=== PATIENT | male | born 1975 | race Caucasian/White ===

== ENCOUNTER 2018-04-09 10:05 | Emergency (ER) | payer OTHER, MEDICAID, SELFPAY ==
[2018-04-09 10:16] VITALS: BP 126/87; PULSE 68; RESP 15; TEMP 36.1; O2SAT 100
[2018-04-09] MEDS: PROPARACAINE 0.5% OPHTH SOL 2 DROPS EYE-LEFT (10:45)
[2018-04-09] MEDS: FLUORESCEIN 1 MG STRIP EYE-LEFT (10:45)
--- NOTE | 2018-04-09 10:48 | ED.EYEPROB ---
HPI - Eye Problem General Chief complaint: Eye Problems Stated complaint: LEFT EYE PAIN Time Seen by Provider: 04/09/18 10:39 Source: patient Mode of arrival: ambulatory Limitations: no limitations History of Present Illness HPI Narrative: This is a 42-year-old male comes emergency department with complaint of left eye pain. He states it started Sunday night early Sunday. It has been continuing to worsen overnight. Patient states that his eye has been red, it feels like there is a lot of pressure behind the eye. He has had some swelling about the eye. Patient denies any fevers, he states his vision has been sort of fuzzy and slightly decreased. Bright light makes it worse. He does have pain with movement. Patient states that he has not had any recent injury, no traumas he has not been engaged in any activities that would likely cause any foreign bodies. Or corneal abrasions. Patient does not wear contacts or glasses. He has had a foreign body on the right side of his eye many years ago but nothing around the left. No prior eye surgeries. He has not had any medical problems, he does not have any prior surgeries. He is not on any oral medications regularly. Patient states that he has not really had any discharge. 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 Related Data Home Medications Medication Instructions Recorded Confirmed ALPRAZOLAM #0 09/16/03 Paroxetine Hydrochloride (Paxil) #0 09/16/03 Allergies Allergy/AdvReac Type Severity Reaction Status Date / Time No Known Drug Allergies Allergy Verified 04/09/18 11:24 Review of Systems Review of Systems All systems reviewed & are unremarkable except as noted in HPI and below Eyes Reports as per HPI, Reports blurry vision, Reports change in vision, Denies diplopia, Denies eye discharge, Reports irritation, Reports eye pain, Denies requires corrective lenses, Denies seeing flashes, Reports photophobia, Denies spots in vision and Reports other (redness, pressure behind eye) Integumentary/Breasts Reports erythema (lids/face, swelling) Exam Narrative Exam Narrative: GEN: well nourished, well appearing male, alert and oriented x 3, patient appears to be in moderate distress. HEENT: Atraumatic, pupils are equal round reactive to light, extraocular movements are intact, patient has moderate swelling of the left upper and lower lids and tissue. Slight erythema. There is no discharge. nares are clear, TMs are clear with no fluid, there is no conjunctival pallor. Throat is clear without any exudates, erythema, tonsillar enlargement or uvular deviation Visual acuity: right [20/20], left [20/200] without correction. IOP: Right 23 mm Hg, Left 22 mm Hg General: no globe trauma Eyelids: Eyelids are slightly swollen on the left upper and lower with erythema no fluctuance, eyelids everted for exam on on the right. Conjunctiva/Sclera: normal inspection on left, the right is injected throughout the sclera and conjunctiva. Corneas: normal inspection, examined with fluroscein on on the left, no uptake, no dendritic lesions, no abrasion or ulceration noted, but the cornea in its entirety does look slightly hazy on left. EOM: intact, no palsy/entrapment Pupils: PERRL, normal accomadation, pupil normal Anterior Chambers: normal inspection, no hypema Posterior: normal fundoscopic on my bilaterally HEART: Regular rate and rhythm without murmur, clicks, rubs. LUNGS:Lungs clear to auscultation, no wheezes, rales, crackles, chest moves symmetrically ABD:bowel sounds normal, soft, non-tender, no guarding, rebound, rigidity, no masses noted, no hepatosplenomegaly MSCL: Non-tender, no muscle atrophy, muscles strength 5/5 upper and lower extremities, full range of motion, normal gait NEURO:CN 2-12 intact, sensation normal Initial Vital Signs Initial Vital Signs: Vital Signs Temperature 97 F L 04/09/18 10:16 Pulse Rate 68 04/09/18 10:16 Respiratory Rate 15 04/09/18 10:16 Blood Pressure 126/87 04/09/18 10:16 Pulse Oximetry 100 04/09/18 10:16 Course Orders Ordered: ED Orders 04/09/18 11:03 CT orbit BI wo con Stat 04/09/18 11:05 Basic Metabolic Panel Stat Complete Blood Count AUTO DIFF Stat Discontinued Medications Fluorescein Sodium (Ful-Anila) 1 mg EYE-LEFT NOW ONE Stop: 04/09/18 11:04 Last Admin: 04/09/18 10:45 Dose: 1 mg Ketorolac Tromethamine (Toradol) 30 mg IV NOW ONE Stop: 04/09/18 11:06 Last Admin: 04/09/18 11:28 Dose: 30 mg Proparacaine HCl (Parcaine 0.5% Ophth Amber) 2 drops EYE-LEFT NOW ONE Stop: 04/09/18 11:04 Last Admin: 04/09/18 10:45 Dose: 2 drops Vital Signs - 8 hr 04/09/18 10:16 04/09/18 12:38 Temperature 97 F L Pulse Rate 68 112 H Respiratory Rate 15 18 Blood Pressure 126/87 Blood Pressure [Left Arm] 132/83 Pulse Oximetry 100 100 MDM - Eye Problem Lab Data Attestation: I reviewed the patient's lab results. Result diagrams: 04/09/18 11:05 04/09/18 11:05 Lab Results 04/09/18 04/09/18 Range/Units 11:05 11:05 WBC 6.4 (4.5-11.0) X10^3/uL RBC 4.97 (4.5-5.9) X10^6/uL Hgb 14.9 (13.5-17.5) g/dL Hct 44.5 (41-53) % MCV 89.4 (80-100) fL MCH 29.9 (26-34) PG MCHC 33.5 (30-36) % RDW 13.9 (11.6-14.8) % Plt Count 192 (150-400) X10^3/uL Neut % (Auto) 62.0 (50-75) % Lymph % (Auto) 26.4 (25-40) % [place] % (Auto) 9.5 (3-14) % Eos % (Auto) 1.5 L (2-4) % Baso % (Auto) 0.6 (0-2) % Neut # (Auto) 4000 (3564-7641) /uL Sodium 139 (137-145) mmol/L Potassium 4.4 (3.4-5.1) mmol/L Chloride 103 (98-107) mmol/L Carbon Dioxide 26 (22-32) mmol/L BUN 18 (9-20) mg/dL Creatinine 0.70 (0.66-1.25) mg/dL Estimated GFR > 60.0 (>60) mL/min BUN/Creatinine Ratio 25.7 H (6-22) Glucose 94 (70-100) mg/dL Calcium 10.2 (8.4-10.2) mg/dL Imaging Data orbit CT: Radiologist's impression: [address] [address] [address] Scan Report Signed Patient: Camacho Monahan MR#: [id number] : 1975 Acct:[id number] Age/Sex: 42 / M Date of Service: 04/09/18 Loc: ED Accession Number: [id number] Procedure: CT orbit BI wo con Ordering Provider: Lubna Montero D.O. PROCEDURE: CT ORBIT BI WO CON INDICATIONS: pain right eye, swelling preseptal, mild, injected TECHNIQUE: Noncontrast 2.5 mm axial images acquired through the orbits, with coronal and sagittal reformats. For radiation dose reduction, the following was used: automated exposure control, adjustment of mA and/or kV according to patient size. COMPARISON: None. FINDINGS: Image quality: Excellent. Orbits: Globes are symmetrical. No metallic foreign bodies. The optic nerves are normal in size. No retrobulbar masses or fat abnormalities. The extra-ocular muscles are normal and symmetrical in appearance. Lacrimal glands are normal in size. Optic chiasm is normal. Intracranial: Visualized portions of the cerebral hemispheres, brainstem, and spinal cord are normal. Bones and sinuses: Visualized calvarium and facial bones appear intact. Visualized sinuses and mastoids are clear. IMPRESSION: Unremarkable examination. No retro-orbital abnormality. Dictated by: Jamal Gregg M.D. on 04/09/2018 at 11:54 Approved by: Jamal Gregg M.D. on 04/09/2018 at 11:57 MDM Narrative Medical decision making narrative: Patient eye exam does show injection Um as well as some haziness over the cornea. Was concern for glaucoma patient does have a normal pressure on initial exam on both eyes slightly elevated at 23 and 22. Patient does have pressure behind the eye and some swelling and erythema so orbital CT was ordered although he has had no other infectious symptoms. 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 There was a question if had managed to take propacaine. Nursing states they had removed from the room. Patient states he does not have it and was told the danger or using it and not seeing Optho. Patient did leave his phone number we discussed with Ophthalmology, they were suspicious for iritis although patient should be expected to get much better with topical proparacaine. Initially discussed putting patient on cyclopentolate and a steroid eyedrops but ultimately decided not to. No herpetic lesions were noted, patient is pressures were normal so angle closure is less likely. Dr. Andino can see the patient tomorrow morning at 9:00 a.m. Or patient if he prefers contrary to see Ophthalmology here in [place]. Patient left without any paperwork and signed out [employer] form. Did recontact patient give him recommendations from Ophthalmology including number and address. Also can followup with Optho in [place]. Discharge Plan Departure Patient Disposition: Left Against Medical Advice Clinical Impression: Acute eye pain Discharge Date/Time: 04/09/18 12:35 Interventions: ED Discharge Assessment Last Done: 04/09/18 13:14 Activity Restrictions/Additional Instructions: Follow-up with Ophthalmology today in or return to the ER for recheck. I am awaiting call back from Ophthalmology. You may take ibuprofen and/or Tylenol as needed for pain. Follow up with Dr. Andino from Ophthalmology. May continue to use Tylenol and/or ibuprofen as needed for pain. The office address is [address] [place] [address] [address] in [place], [place]. If you stop by and 8:45/9 a.m. they will see you 1st thing in the morning. The office is in the basement of a restaurant called [facility]. If you prefer you can follow up with Ophthalmology here in town. Go to the office 1st thing tomorrow for evaluation. Prescriptions: No Action Paroxetine Hydrochloride (Paxil) Qty: 0 RF: 0 ALPRAZOLAM Qty: 0 RF: 0 Stand Alone Forms: Against Medical Advice
--- NOTE | 2018-04-09 11:03 | DI.CT.S_ITS ---
PROCEDURE: CT ORBIT BI WO CON INDICATIONS: pain right eye, swelling preseptal, mild, injected TECHNIQUE: Noncontrast 2.5 mm axial images acquired through the orbits, with coronal and sagittal reformats. For radiation dose reduction, the following was used: automated exposure control, adjustment of mA and/or kV according to patient size. COMPARISON: None. FINDINGS: Image quality: Excellent. Orbits: Globes are symmetrical. No metallic foreign bodies. The optic nerves are normal in size. No retrobulbar masses or fat abnormalities. The extra-ocular muscles are normal and symmetrical in appearance. Lacrimal glands are normal in size. Optic chiasm is normal. Intracranial: Visualized portions of the cerebral hemispheres, brainstem, and spinal cord are normal. Bones and sinuses: Visualized calvarium and facial bones appear intact. Visualized sinuses and mastoids are clear. IMPRESSION: Unremarkable examination. No retro-orbital abnormality. Dictated by: Jamal Gregg M.D. on 04/09/2018 at 11:54 Approved by: Jamal Gregg M.D. on 04/09/2018 at 11:57
--- NOTE | 2018-04-09 11:09 | ED_ITS ---
HPI - Eye Problem General Chief complaint: Eye Problems Stated complaint: LEFT EYE PAIN Time Seen by Provider: 04/09/18 10:39 Source: patient Mode of arrival: ambulatory Limitations: no limitations History of Present Illness HPI Narrative: This is a 42-year-old male comes emergency department with complaint of left eye pain. He states it started Sunday night early Sunday. It has been continuing to worsen overnight. Patient states that his eye has been red, it feels like there is a lot of pressure behind the eye. He has had some swelling about the eye. Patient denies any fevers, he states his vision has been sort of fuzzy and slightly decreased. Bright light makes it worse. He does have pain with movement. Patient states that he has not had any recent injury, no traumas he has not been engaged in any activities that would likely cause any foreign bodies. Or corneal abrasions. Patient does not wear contacts or glasses. He has had a foreign body on the right side of his eye many years ago but nothing around the left. No prior eye surgeries. He has not had any medical problems, he does not have any prior surgeries. He is not on any oral medications regularly. Patient states that he has not really had any discharge. 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 Related Data Home Medications Medication Instructions Recorded Confirmed ALPRAZOLAM #0 09/16/03 Paroxetine Hydrochloride (Paxil) #0 09/16/03 Allergies Allergy/AdvReac Type Severity Reaction Status Date / Time No Known Drug Allergies Allergy Verified 04/09/18 11:24 Review of Systems Review of Systems All systems reviewed & are unremarkable except as noted in HPI and below Eyes Reports as per HPI, Reports blurry vision, Reports change in vision, Denies diplopia, Denies eye discharge, Reports irritation, Reports eye pain, Denies requires corrective lenses, Denies seeing flashes, Reports photophobia, Denies spots in vision and Reports other (redness, pressure behind eye) Integumentary/Breasts Reports erythema (lids/face, swelling) Exam Narrative Exam Narrative: GEN: well nourished, well appearing male, alert and oriented x 3 , patient appears to be in moderate distress. HEENT: Atraumatic, pupils are equal round reactive to light, extraocular movements are intact, patient has moderate swelling of the left upper and lower lids and tissue. Slight erythema. There is no discharge. nares are clear, TMs are clear with no fluid, there is no conjunctival pallor. Throat is clear without any exudates, erythema, tonsillar enlargement or uvular deviation Visual acuity: right [20/20], left [20/200] without correction. IOP: Right 23 mm Hg, Left 22 mm Hg General: no globe trauma Eyelids: Eyelids are slightly swollen on the left upper and lower with erythema no fluctuance, eyelids everted for exam on on the right. Conjunctiva/Sclera: normal inspection on left, the right is injected throughout the sclera and conjunctiva. Corneas: normal inspection, examined with fluroscein on on the left, no uptake, no dendritic lesions, no abrasion or ulceration noted, but the cornea in its entirety does look slightly hazy on left. EOM: intact, no palsy/entrapment Pupils: PERRL, normal accomadation, pupil normal Anterior Chambers: normal inspection, no hypema Posterior: normal fundoscopic on my bilaterally HEART: Regular rate and rhythm without murmur, clicks, rubs. LUNGS:Lungs clear to auscultation, no wheezes, rales, crackles, chest moves symmetrically ABD:bowel sounds normal, soft, non-tender, no guarding, rebound, rigidity, no masses noted, no hepatosplenomegaly MSCL: Non-tender, no muscle atrophy, muscles strength 5/5 upper and lower extremities, full range of motion, normal gait NEURO:CN 2-12 intact, sensation normal Initial Vital Signs Initial Vital Signs: Vital Signs Temperature 97 F L 04/09/18 10:16 Pulse Rate 68 04/09/18 10:16 Respiratory Rate 15 04/09/18 10:16 Blood Pressure 126/87 04/09/18 10:16 Pulse Oximetry 100 04/09/18 10:16 Course Orders Ordered: ED Orders 04/09/18 11:03 CT orbit BI wo con Stat 04/09/18 11:05 Basic Metabolic Panel Stat Complete Blood Count AUTO DIFF Stat Discontinued Medications Fluorescein Sodium (Ful-Anila) 1 mg EYE-LEFT NOW ONE Stop: 04/09/18 11:04 Last Admin: 04/09/18 10:45 Dose: 1 mg Ketorolac Tromethamine (Toradol) 30 mg IV NOW ONE Stop: 04/09/18 11:06 Last Admin: 04/09/18 11:28 Dose: 30 mg Proparacaine HCl (Parcaine 0.5% Ophth Amber) 2 drops EYE-LEFT NOW ONE Stop: 04/09/18 11:04 Last Admin: 04/09/18 10:45 Dose: 2 drops Vital Signs - 8 hr 04/09/18 10:16 04/09/18 12:38 Temperature 97 F L Pulse Rate 68 112 H Respiratory Rate 15 18 Blood Pressure 126/87 Blood Pressure [Left Arm] 132/83 Pulse Oximetry 100 100 MDM - Eye Problem Lab Data Attestation: I reviewed the patient's lab results. Result diagrams: 04/09/18 11:05 04/09/18 11:05 Lab Results 04/09/18 04/09/18 Range/Units 11:05 11:05 WBC 6.4 (4.5-11.0) X10^3/uL RBC 4.97 (4.5-5.9) X10^6/uL Hgb 14.9 (13.5-17.5) g/dL Hct 44.5 (41-53) % MCV 89.4 (80-100) fL MCH 29.9 (26-34) PG MCHC 33.5 (30-36) % RDW 13.9 (11.6-14.8) % Plt Count 192 (150-400) X10^3/uL Neut % (Auto) 62.0 (50-75) % Lymph % (Auto) 26.4 (25-40) % [place] % (Auto) 9.5 (3-14) % Eos % (Auto) 1.5 L (2-4) % Baso % (Auto) 0.6 (0-2) % Neut # (Auto) 4000 (2271-3884) /uL Sodium 139 (137-145) mmol/L Potassium 4.4 (3.4-5.1) mmol/L Chloride 103 (98-107) mmol/L Carbon Dioxide 26 (22-32) mmol/L BUN 18 (9-20) mg/dL Creatinine 0.70 (0.66-1.25) mg/dL Estimated GFR > 60.0 (>60) mL/min BUN/Creatinine Ratio 25.7 H (6-22) Glucose 94 (70-100) mg/dL Calcium 10.2 (8.4-10.2) mg/dL Imaging Data orbit CT: Radiologist's impression: [address] [address] [address] Scan Report Signed Patient: Camacho Monahan MR#: [id number] : 1975 Acct:[id number] Age/Sex: 42 / M Date of Service: 04/09/18 Loc: ED Accession Number: [id number] Procedure: CT orbit BI wo con Ordering Provider: Lubna Montero D.O. PROCEDURE: CT ORBIT BI WO CON INDICATIONS: pain right eye, swelling preseptal, mild, injected TECHNIQUE: Noncontrast 2.5 mm axial images acquired through the orbits, with coronal and sagittal reformats. For radiation dose reduction, the following was used: automated exposure control, adjustment of mA and/or kV according to patient size. COMPARISON: None. FINDINGS: Image quality: Excellent. Orbits: Globes are symmetrical. No metallic foreign bodies. The optic nerves are normal in size. No retrobulbar masses or fat abnormalities. The extra-ocular muscles are normal and symmetrical in appearance. Lacrimal glands are normal in size. Optic chiasm is normal. Intracranial: Visualized portions of the cerebral hemispheres, brainstem, and spinal cord are normal. Bones and sinuses: Visualized calvarium and facial bones appear intact. Visualized sinuses and mastoids are clear. IMPRESSION: Unremarkable examination. No retro-orbital abnormality. Dictated by: Jamal Gregg M.D. on 04/09/2018 at 11:54 Approved by: Jamal Gregg M.D. on 04/09/2018 at 11:57 MDM Narrative Medical decision making narrative: Patient eye exam does show injection Um as well as some haziness over the cornea. Was concern for glaucoma patient does have a normal pressure on initial exam on both eyes slightly elevated at 23 and 22. Patient does have pressure behind the eye and some swelling and erythema so orbital CT was ordered although he has had no other infectious symptoms. 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 There was a question if had managed to take propacaine. Nursing states they had removed from the room. Patient states he does not have it and was told the danger or using it and not seeing Optho. Patient did leave his phone number we discussed with Ophthalmology, they were suspicious for iritis although patient should be expected to get much better with topical proparacaine. Initially discussed putting patient on cyclopentolate and a steroid eyedrops but ultimately decided not to. No herpetic lesions were noted, patient is pressures were normal so angle closure is less likely. Dr. Andino can see the patient tomorrow morning at 9:00 a.m. Or patient if he prefers contrary to see Ophthalmology here in [place]. Patient left without any paperwork and signed out [employer] form. Did recontact patient give him recommendations from Ophthalmology including number and address. Also can followup with Optho in [place]. Discharge Plan Departure Patient Disposition: Left Against Medical Advice Clinical Impression: Acute eye pain Discharge Date/Time: 04/09/18 12:35 Interventions: ED Discharge Assessment Last Done: 04/09/18 13:14 Activity Restrictions/Additional Instructions: Follow-up with Ophthalmology today in or return to the ER for recheck. I am awaiting call back from Ophthalmology. You may take ibuprofen and/or Tylenol as needed for pain. Follow up with Dr. Andino from Ophthalmology. May continue to use Tylenol and/or ibuprofen as needed for pain. The office address is [address] [place] [address] [address] in [place], [place]. If you stop by and 8:45/9 a.m. they will see you 1st thing in the morning. The office is in the basement of a restaurant called [facility]. If you prefer you can follow up with Ophthalmology here in town. Go to the office 1st thing tomorrow for evaluation. Prescriptions: No Action Paroxetine Hydrochloride (Paxil) Qty: 0 RF: 0 ALPRAZOLAM Qty: 0 RF: 0 Stand Alone Forms: Against Medical Advice
[2018-04-09 11:18] LABS: Add Manual Diff / Slide Review NO; Basophils Percent Auto 0.6 % (0-2); Eosinophils Percent Auto 1.5 % (2-4); Hematocrit 44.5 % (41-53); Hemoglobin 14.9 g/dL (13.5-17.5); Lymphocytes Percent Auto 26.4 % (25-40); Mean Corpuscular HGB Conc 33.5 % (30-36); Mean Corpuscular Hemoglobin 29.9 PG (26-34); Mean Corpuscular Volume 89.4 fL (80-100); Monocytes Percent Auto 9.5 % (3-14); Neutrophils Absolute Auto 4000 /uL (1500-7000); Platelet Count 192 X10^3/uL (150-400); Red Blood Cell Count 4.97 X10^6/uL (4.5-5.9); Red Cell Distribution Width 13.9 % (11.6-14.8); White Blood Cell Count 6.4 X10^3/uL (4.5-11.0)
[2018-04-09] MEDS: KETOROLAC 60 MG/2 ML VIAL 30 MG IV (11:28)
[2018-04-09 11:29] LABS: BUN Creatinine Ratio 25.7 (6-22); Blood Urea Nitrogen 18 mg/dL (9-20); Calcium 10.2 mg/dL (8.4-10.2); Carbon Dioxide 26 mmol/L (22-32); Chloride 103 mmol/L (98-107); Estimated Glomerular Filt Rate > 60.0 mL/min (>60); Glucose 94 mg/dL (70-100); HEMOLYSIS < 15 (0-50); Potassium 4.4 mmol/L (3.4-5.1); Sodium 139 mmol/L (137-145)
[2018-04-09 12:38] VITALS: BP 132/83; PULSE 112; RESP 18; O2SAT 100
--- NOTE | 2018-04-09 13:08 | PC.NURSE ---
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 I explained to him that if he leaves then he will need to be readmitted to the ER again. He states there is no one else to pick her up since family is out of town. He will pick her up and come directly back, states it will take twenty minutes. DO Montero at bedside discussing this with patient, she states she wants to call ophthalmology and would prefer he stay until then. He reports he must leave. DO Montero got his phone number and was finishing up his paperwork including AMA when he stated he had to go right then but will come back. Patient reports pain is much improved form the iv ibuprofen stuff I think. No paperwork signed, verbal discharge and AMA performed by DO Montero.
--- NOTE | 2018-04-09 13:50 | PC.NURSE ---
I called patient per request from Dr. Montero. Gave him information from Ophthalmic Medical Technologist to go to Dr. Andino's office at [address] [place] [address] between 845 and 9am tomorrow. patient is agreeable with this plan and will call if for some reason he cannot make it there tomorrow.
== END 2018-04-09 12:35 | disposition left against medical advice (07) ==
PROVIDERS: Emergency Provider Emergency Medicine
DX: H57.12 Ocular pain, left eye (principal)
CPT/HCPCS: 36591; 70480; 80048; 85025; 96374; 99283; 99284; J1885

== ENCOUNTER 2018-04-13 09:11 | Emergency (ER) | payer OTHER, MEDICAID, SELFPAY ==
[2018-04-13 09:15] VITALS: BP 122/92; PULSE 75; RESP 20; TEMP 36.5; O2SAT 100
[2018-04-13] MEDS: PROPARACAINE 0.5% OPHTH SOL 1 DROPS EYE-LEFT (09:36)
--- NOTE | 2018-04-13 10:03 | ED.EYEPROB ---
HPI - Eye Problem General Chief complaint: Eye Problems Stated complaint: states severe pain left eye, loss of vision Time Seen by Provider: 04/13/18 10:02 Source: patient and old records reviewed Mode of arrival: ambulatory Limitations: no limitations History of Present Illness HPI Narrative: This is a 42-year-old male who comes in with complaint of left eye pain and decreased vision. He was seen by myself on the 09 of April. He left [facility] prior to talking to Ophthalmology after he had been evaluated. Discussed with patient on the phone he needs to follow up. We set up a follow-up appointment the next morning and [facility] but also relate that he could see Ophthalmology here although we had not set up an exact appointment in and [place]. Patient apparently misunderstood did not go to the appointment infrequent and did not understand that he could come to here and in a [place] and did not return to the ER. Patient's eye has been increasingly painful. He states that he continues to feel pressure is continues to be quite injected. He is not having lot of drainage but he is having tearing. He states his vision has been decreasing. He has felt sort of chilled but fevers, he has not had any other rashes or facial infections. He denies any other new injuries. He denies any introcular drops. There was concern that he may have taken appropriate came bottle which he denied at the time and denies as well today. Patient does not normally wear glasses, does not contacts. He has mental health issues for bipolar schizophrenia but denies any other medical issues. He states before he was able to see but but now he can't blurred shapes but nothing better. Related Data Home Medications Medication Instructions Recorded Confirmed ALPRAZOLAM #0 09/16/03 Paroxetine Hydrochloride (Paxil) #0 09/16/03 Allergies Allergy/AdvReac Type Severity Reaction Status Date / Time No Known Drug Allergies Allergy Verified 04/09/18 11:24 Review of Systems Review of Systems All systems reviewed & are unremarkable except as noted in HPI and below Constitutional Reports chills, Denies fever(s) and Reports headache(s) Eyes Reports blurry vision, Reports change in vision, Denies diplopia, Reports eye discharge (teary, no purulent), Reports irritation, Reports eye pain, Denies requires corrective lenses, Reports photophobia and Denies spots in vision ENT Ears, Nose, Mouth, and Throat: Reports headache(s) and Denies nasal congestion Gastrointestinal Gastrointestinal: Reports nausea and Denies vomiting Integumentary/Breasts Reports rash (eyelid) Neurologic Reports headache(s) [facility] Social History Smoking Status: Never smoker Exam Narrative Exam Narrative: GEN: well nourished, well appearing male, alert and oriented x 3, patient appears to be in moderate distress. HEENT: Atraumatic, pupils are equal round reactive to light, extraocular movements are intact, nares are clear, TMs are clear with no fluid, there is no conjunctival pallor. Throat is clear without any exudates, erythema, tonsillar enlargement or uvular deviation Visual acuity: right [20/20], left unable to obtain. can differentiate fingers. IOP: Right 23 mm Hg, Left 22 mm Hg General: no globe trauma Eyelids: Patient's right eyelid is normal, left eyelid is slightly injected in the upper as well as lower with some swelling. There is no real erythema left versus right except just along the lids.. Conjunctiva/Sclera: normal inspection on the right, on the left patient is very injected in the sclera and conjunctiva. Corneas: normal inspection, examined with fluroscein on left. Patient has haziness to the cornea as well as uptake around the edge of the cornea and sort of spreading in words. Patient also has punctate injection over the sclera sort of generalized. This is new from his last exam which had no uptake. No foreign body, no linear abrasions are noted. EOM: intact, no palsy/entrapment Pupils: PERRL, normal accomadation, pupil normal Anterior Chambers: normal inspection, no hypema Posterior: normal fundoscopic on bilaterally but difficult to obtain on left second to photophobia and pain. HEART: Regular rate and rhythm without murmur, clicks, rubs. No carotid bruits, pulses are equal in upper and lower extremities LUNGS:Lungs clear to auscultation, no wheezes, rales, crackles, chest moves symmetrically ABD:bowel sounds normal, soft, non-tender, no guarding, rebound, rigidity, no masses noted, no hepatosplenomegaly MSCL: Non-tender, no muscle atrophy, muscles strength 5/5 upper and lower extremities, full range of motion, normal gait NEURO:CN 2-12 intact, sensation normal Initial Vital Signs Initial Vital Signs: Vital Signs Temperature 97.7 F 04/13/18 09:15 Pulse Rate 75 04/13/18 09:15 Respiratory Rate 20 04/13/18 09:15 Blood Pressure 122/92 H 04/13/18 09:15 Pulse Oximetry 100 04/13/18 09:15 Course Orders Ordered: Discontinued Medications Hydrocodone Bitart/Acetaminophen (Bradford 5/325) 2 tab PO NOW ONE Stop: 04/13/18 10:25 Last Admin: 04/13/18 10:35 Dose: 2 tab Ibuprofen (Advil) 800 mg PO NOW ONE Stop: 04/13/18 10:04 Last Admin: 04/13/18 10:07 Dose: 800 mg Ofloxacin (Ocuflox 0.3% Ophth) 1 drops EYE-LEFT NOW ONE Stop: 04/13/18 10:25 Last Admin: 04/13/18 10:45 Dose: 2 drop Proparacaine HCl (Parcaine 0.5% Ophth Amber) 1 drops EYE-LEFT NOW ONE Stop: 04/13/18 09:34 Last Admin: 04/13/18 09:36 Dose: 2 drop Vital Signs - 8 hr 04/13/18 09:15 04/13/18 11:03 Temperature 97.7 F Pulse Rate 75 86 Respiratory Rate 20 15 Blood Pressure 122/92 H Blood Pressure [Left Arm] 147/92 H Pulse Oximetry 100 99 MDM - Eye Problem MDM Narrative Medical decision making narrative: Discussed with patient I am quite concerned and I want him to see Ophthalmology today if possible. There is no local ophthalmology available. We discussed talking to Ophthalmology through [facility]. Patient does now have some uptake on fluorescein which she did not have on his last visit on the 09 of April. Started on some antibiotic eyedrops. He was given 2 Bradford here for pain as well as ibuprofen. Patient has not had any similar issues in the past. We discussed he had to leave [facility] last time because he had a young child that he had to warp picker and did not have any additional help. He was aware of the appointment made for him for Ophthalmology but stated it was too difficult to get to. He states his symptoms have sort of been improved occasionally with ibuprofen but have been slowly worsening in general. He came in today because he did have any appointments or other things that he had to get to and appears quite uncomfortable today. Patient and I discussed that delay in treatment or further delay in treatment unlikely cause loss of vision. He is well aware of this. Patient and I discussed that he really needs to see Ophthalmology and get started on appropriate treatment. Last discussion with Ophthalmology was that patient might have a high right us versus optic neuritis versus other cause. Spoke with Dr. Guallpa with Ophthalmology. She asked that the patient come to [facility] Emergency Department for evaluation. Plan to send patient by private auto. Discussed that we give him the floor quinolone eye drop. She agrees that he does need evaluation by Ophthalmology. Patient has been given directions, he has transportation personally 2 [facility] ER we did discuss if he needed that he could have BLS transport but does not needed at this time. Discharge Plan Departure Patient Disposition: [facility] Clinical Impression: Acute eye pain, Decreased vision Activity Restrictions/Additional Instructions: Go directly to the ER at [facility] to follow up with Ophthalmology. Let them know your case was dicussed with Dr. Guallpa and they are expecting you to come to the ER today for evaluation. Continue antibiotic eyedrops 1-2 drops every 4 hr while awake. At least 4 times daily. Continue ibuprofen 600 mg every 6 hr as needed for pain. You may also use Tylenol 1000 mg every 8 hr as needed for pain. Prescriptions: No Action Paroxetine Hydrochloride (Paxil) Qty: 0 RF: 0 ALPRAZOLAM Qty: 0 RF: 0
[2018-04-13] MEDS: IBUPROFEN 400 MG TABLET 800 MG PO (10:07)
--- NOTE | 2018-04-13 10:33 | ED_ITS ---
HPI - Eye Problem General Chief complaint: Eye Problems Stated complaint: states severe pain left eye, loss of vision Time Seen by Provider: 04/13/18 10:02 Source: patient and old records reviewed Mode of arrival: ambulatory Limitations: no limitations History of Present Illness HPI Narrative: This is a 42-year-old male who comes in with complaint of left eye pain and decreased vision. He was seen by myself on the 09 of April. [place] [facility] [place] to [place]mology after he had been evaluated. Discussed with patient on the phone he needs to follow up. We set up a follow-up appointment the next morning and [facility] but also relate that he could see Ophthalmology here although we had not set up an exact appointment in and [place]. Patient apparently misunderstood did not go to the appointment infrequent and did not understand that he could come to here and in a [place] and did not return to the ER. Patient's eye has been increasingly painful. He states that he continues to feel pressure is continues to be quite injected. He is not having lot of drainage but he is having tearing. He states his vision has been decreasing. He has felt sort of chilled but fevers, he has not had any other rashes or facial infections. He denies any other new injuries. He denies any introcular drops. There was concern that he may have taken appropriate came bottle which he denied at the time and denies as well today. Patient does not normally wear glasses, does not contacts. He has mental health issues for bipolar schizophrenia but denies any other medical issues. He states before he was able to see but but now he can't blurred shapes but nothing better. Related Data Home Medications Medication Instructions Recorded Confirmed ALPRAZOLAM #0 09/16/03 Paroxetine Hydrochloride (Paxil) #0 09/16/03 Allergies Allergy/AdvReac Type Severity Reaction Status Date / Time No Known Drug Allergies Allergy Verified 04/09/18 11:24 Review of Systems Review of Systems All systems reviewed & are unremarkable except as noted in HPI and below Constitutional Reports chills, Denies fever(s) and Reports headache(s) Eyes Reports blurry vision, Reports change in vision, Denies diplopia, Reports eye discharge (teary, no purulent), Reports irritation, Reports eye pain, Denies requires corrective lenses, Reports photophobia and Denies spots in vision ENT Ears, Nose, Mouth, and Throat: Reports headache(s) and Denies nasal congestion Gastrointestinal Gastrointestinal: Reports nausea and Denies vomiting Integumentary/Breasts Reports rash (eyelid) Neurologic Reports headache(s) [facility] Social History Smoking Status: Never smoker Exam Narrative Exam Narrative: GEN: well nourished, well appearing male, alert and oriented x 3 , patient appears to be in moderate distress. HEENT: Atraumatic, pupils are equal round reactive to light, extraocular movements are intact, nares are clear, TMs are clear with no fluid, there is no conjunctival pallor. Throat is clear without any exudates, erythema, tonsillar enlargement or uvular deviation Visual acuity: right [20/20], left unable to obtain. can differentiate fingers. IOP: Right 23 mm Hg, Left 22 mm Hg General: no globe trauma Eyelids: Patient's right eyelid is normal, left eyelid is slightly injected in the upper as well as lower with some swelling. There is no real erythema left versus right except just along the lids.. Conjunctiva/Sclera: normal inspection on the right, on the left patient is very injected in the sclera and conjunctiva. Corneas: normal inspection, examined with fluroscein on left. Patient has haziness to the cornea as well as uptake around the edge of the cornea and sort of spreading in words. Patient also has punctate injection over the sclera sort of generalized. This is new from his last exam which had no uptake. No foreign body, no linear abrasions are noted. EOM: intact, no palsy/entrapment Pupils: PERRL, normal accomadation, pupil normal Anterior Chambers: normal inspection, no hypema Posterior: normal fundoscopic on bilaterally but difficult to obtain on left second to photophobia and pain. HEART: Regular rate and rhythm without murmur, clicks, rubs. No carotid bruits , pulses are equal in upper and lower extremities LUNGS:Lungs clear to auscultation, no wheezes, rales, crackles, chest moves symmetrically ABD:bowel sounds normal, soft, non-tender, no guarding, rebound, rigidity, no masses noted, no hepatosplenomegaly MSCL: Non-tender, no muscle atrophy, muscles strength 5/5 upper and lower extremities, full range of motion, normal gait NEURO:CN 2-12 intact, sensation normal Initial Vital Signs Initial Vital Signs: Vital Signs Temperature 97.7 F 04/13/18 09:15 Pulse Rate 75 04/13/18 09:15 Respiratory Rate 20 04/13/18 09:15 Blood Pressure 122/92 H 04/13/18 09:15 Pulse Oximetry 100 04/13/18 09:15 Course Orders Ordered: Discontinued Medications Hydrocodone Bitart/Acetaminophen (Burns 5/325) 2 tab PO NOW ONE Stop: 04/13/18 10:25 Last Admin: 04/13/18 10:35 Dose: 2 tab Ibuprofen (Advil) 800 mg PO NOW ONE Stop: 04/13/18 10:04 Last Admin: 04/13/18 10:07 Dose: 800 mg Ofloxacin (Ocuflox 0.3% Ophth) 1 drops EYE-LEFT NOW ONE Stop: 04/13/18 10:25 Last Admin: 04/13/18 10:45 Dose: 2 drop Proparacaine HCl (Parcaine 0.5% Ophth Amber) 1 drops EYE-LEFT NOW ONE Stop: 04/13/18 09:34 Last Admin: 04/13/18 09:36 Dose: 2 drop Vital Signs - 8 hr 04/13/18 09:15 04/13/18 11:03 Temperature 97.7 F Pulse Rate 75 86 Respiratory Rate 20 15 Blood Pressure 122/92 H Blood Pressure [Left Arm] 147/92 H Pulse Oximetry 100 99 MDM - Eye Problem MDM Narrative Medical decision making narrative: Discussed with patient I am quite concerned and I want him to see Ophthalmology today if possible. There is no local ophthalmology available. We discussed talking to Ophthalmology through [facility]. Patient does now have some uptake on fluorescein which she did not have on his last visit on the 09 of April. Started on some antibiotic eyedrops. He was given 2 Burns here for pain as well as ibuprofen. Patient has not had any similar issues in the past. We discussed he had to leave [facility] last time because he had a young child that he had to pepper picker and did not have any additional help. He was aware of the appointment made for him for Ophthalmology but stated it was too difficult to get to. He states his symptoms have sort of been improved occasionally with ibuprofen but have been slowly worsening in general. He came in today because he did have any appointments or other things that he had to get to and appears quite uncomfortable today. Patient and I discussed that delay in treatment or further delay in treatment unlikely cause loss of vision. He is well aware of this. Patient and I discussed that he really needs to see Ophthalmology and get started on appropriate treatment. Last discussion with Ophthalmology was that patient might have a high right us versus optic neuritis versus other cause. Spoke with Dr. Guallpa with Ophthalmology. She asked that the patient come to [facility] Emergency Department for evaluation. Plan to send patient by private auto. Discussed that we give him the floor quinolone eye drop. She agrees that he does need evaluation by Ophthalmology. Patient has been given directions, he has transportation personally 2 [facility] ER we did discuss if he needed that he could have BLS transport but does not needed at this time. Discharge Plan Departure Patient Disposition: [facility] Clinical Impression: Acute eye pain, Decreased vision Activity Restrictions/Additional Instructions: Go directly to the ER at [facility] to follow up with Ophthalmology. Let them know your case was dicussed with Dr. Guallpa and they are expecting you to come to the ER today for evaluation. Continue antibiotic eyedrops 1-2 drops every 4 hr while awake. At least 4 times daily. Continue ibuprofen 600 mg every 6 hr as needed for pain. You may also use Tylenol 1000 mg every 8 hr as needed for pain. Prescriptions: No Action Paroxetine Hydrochloride (Paxil) Qty: 0 RF: 0 ALPRAZOLAM Qty: 0 RF: 0
[2018-04-13] MEDS: HYDROCODONE/ACET 5/325 TABLET 2 TAB PO (10:35)
[2018-04-13] MEDS: OFLOXACIN 0.3% OPHTH 5 ML 1 DROPS EYE-LEFT (10:45)
[2018-04-13 11:03] VITALS: BP 147/92; PULSE 86; RESP 15; O2SAT 99
== END 2018-04-13 12:00 | disposition short-term general hospital (02) ==
PROVIDERS: Emergency Provider Emergency Medicine
DX: H57.12 Ocular pain, left eye (principal); H54.7 Unspecified visual loss
CPT/HCPCS: 99283

== ENCOUNTER 2021-06-14 09:38 | Emergency (ER) | payer OTHER, MEDICAID, SELFPAY ==
[2021-06-14] VITALS (12 sets, daily range): BP systolic 115–167; BP diastolic 66–103; PULSE 48–64; RESP 13–42; TEMP 36.3; O2SAT 95–98; BMI 32.1
--- NOTE | 2021-06-14 09:48 | DI.RAD.S_ITS ---
PROCEDURE: XR CHEST 1V INDICATIONS: chest pain TECHNIQUE: One view of the chest was acquired. COMPARISON: None. FINDINGS: Surgical changes and devices: None. Lungs and pleura: Lungs are clear. No pleural effusions or pneumothorax. Mediastinum: Mediastinal contours appear normal. Heart size is enlarged. No vascular congestion present.. Bones and chest wall: No suspicious bony lesions. Overlying soft tissues appear unremarkable. IMPRESSION: Cardiomegaly without vascular congestion Approved by: Prince Arenas M.D. on 06/14/2021 at 10:00
[2021-06-14 10:05] LABS: Add Manual Diff / Slide Review NO; Basophils Absolute Auto 0 /uL (0-100); Basophils Percent Auto 0.9 % (0-2); Eosinophils Absolute Auto 100 /uL (0-450); Eosinophils Percent Auto 1.8 % (2-4); Hematocrit 41.7 % (41-53); Hemoglobin 13.9 g/dL (13.5-17.5); Lymphocytes Absolute Auto 2000 /uL (1100-4500); Mean Corpuscular HGB Conc 33.3 % (30-36); Mean Corpuscular Hemoglobin 29.1 PG (26-34); Mean Corpuscular Volume 87.4 fL (80-100); Monocytes Absolute Auto 500 /uL (0-900); Monocytes Percent Auto 9.6 % (3-14); Neutrophils Absolute Auto 2300 /uL (1500-7000); Neutrophils Percent Auto 46.7 % (50-75); Platelet Count 218 X10^3/uL (150-400); Red Blood Cell Count 4.76 X10^6/uL (4.5-5.9); Red Cell Distribution Width 14.2 % (11.6-14.8); White Blood Cell Count 4.9 X10^3/uL (4.5-11.0)
[2021-06-14 10:07] LABS: INR 1.1 (0.9-1.3); Prothrombin Time 11.7 SECONDS (10.1-12.7)
[2021-06-14 10:10] LABS: PTT Partial Thromboplastin Tim 33 SECONDS (26.4-36.2)
[2021-06-14 10:12] LABS: Alanine Aminotransferase 18 IU/L (<50); Albumin 4.6 g/dL (3.5-5.0); Albumin Globulin Ratio 1.2 (1.0-2.8); Alkaline Phosphatase 67 U/L (38-126); Aspartate Aminotransferase 23 IU/L (17-59); BUN Creatinine Ratio 16.5 (6-22); Bilirubin Total 0.6 mg/dL (0.2-1.3); Blood Urea Nitrogen 13 mg/dL (9-20); Calcium 10.3 mg/dL (8.4-10.2); Carbon Dioxide 27 mmol/L (22-32); Chloride 105 mmol/L (98-107); Creatine Kinase 84 U/L (55-170); Estimated Glomerular Filt Rate > 60.0 mL/min (>60); Globulin 3.7 g/dL (1.7-4.1); Glucose 102 mg/dL (70-100); HEMOLYSIS < 15 (0-50); Lipase 109 U/L (23-300); Potassium 4.1 mmol/L (3.4-5.1); Sodium 140 mmol/L (137-145); Total Protein 8.3 g/dL (6.3-8.2)
[2021-06-14 10:23] LABS: Troponin I < 0.012 ng/mL (0.01-0.034)
--- NOTE | 2021-06-14 10:35 | ED_ITS ---
HPI - Chest Pain General Chief Complaint: Chest Pain Stated Complaint: Heart palpatations Time Seen by Provider: 06/14/21 10:07 Source: patient Mode of arrival: Ambulatory Limitations: no limitations History of Present Illness HPI narrative: Patient is a 45-year-old male who has a history of bipolar schizophrenia c ontrolled on marijuana and tinctures, presenting today with palpitations. He says over last 5 days he has had some palpitations. He notices it mostly at night when he laid down in sometimes in the morning. He denies any dizziness or lightheadedness. He has no shortness of breath. He does have some pain in the left side which hurts whenever he touches it. He has been taking ibuprofen which does seem to help. He has no known coronary artery disease. He has been able to walk and move around without any difficulty the last few days. He denies any dizziness or lightheadedness. He has not felt any palpitations while in the emergency department. 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 He denies any significant weight loss or weight gain. Related Data Previous Rx's Medication Instructions Recorded permethrin 5 % topical cream 1 applic TOPICAL Q14D #60 g 03/25/21 Allergies Allergy/AdvReac Type Severity Reaction Status Date / Time No Known Drug Allergies Allergy Verified 06/14/21 09:48 Review of Systems Review of Systems Narrative: GENERAL: Denies chills, fatigue, malaise, fever, sweats, travel HEENT: Denies sinus pain, ear pain, sore throat, difficulty swallowing, neck pain RESPIRATORY: Denies dyspnea, cough, wheezing, hemoptysis, sputum. CARDIOVASCULAR: See HPI GASTROINTESTINAL: Denies nausea, vomiting, abdominal pain, diarrhea, constipat ion, melena. : Denies dysuria, frequency, incontinence, hematuria, urinary retention, flank pain. MUSCULOSKELETAL: Denies weakness, joint pain, or bony pain SKIN: No rash, no erythema, no pruritus NEUROLOGIC: Denies weakness, dizziness, headache, numbness, change in speech, confusion PSYCHIATRIC: No concerning psychosocial issues. 12 point review of systems is negative except for those stated above and HPI Patient History Medical History Bipolar 1 disorder Scabies Schizophrenia Skin rash Social History Smoking Status: Never smoker Smoking Status: Never smoker alcohol intake frequency: holidays/special occasions only Substance Use Type: marijuana Exam Initial Vital Signs Initial Vital Signs: Vital Signs Temperature 97.4 F L 06/14/21 09:42 Pulse Rate 63 06/14/21 09:42 Respiratory Rate 17 06/14/21 09:42 Blood Pressure 167/103 H 06/14/21 09:42 Pulse Oximetry 98 06/14/21 09:42 GENERAL: Alert 45-year-old and in no acute distress. HEENT: Head atraumatic,EOMI, pupils reactive, face symmetric, moist mucous membranes CARDIOVASCULAR: Regular rate and rhythm without murmurs, rubs or gallops. RESPIRATORY: Breath sounds equal bilaterally, no wheezes rales or rhonchi. ABDOMEN: Soft, nontender. Normoactive bowel sounds all 4 quadrants. No guarding or rebound. EXTREMITIES: Normal range of motion, no clubbing or edema. Neurovascularly intact NEUROLOGICAL: Alert and oriented x4.Normal gait and speech. SKIN: Warm, dry, no laceration, no petechiae, no rashes or lesions. Course Orders Ordered: ED Orders 06/14/21 09:48 XR chest 1V Stat Complete Blood Count AUTO DIFF Stat Comprehensive Metabolic Panel Stat Lipase Stat Magnesium Stat Partial Thromboplastin Time Stat Prothrombin Time INR Stat Troponin & CK Cardiac Panel Stat 06/14/21 09:53 EKG-12 Lead Stat Vital Signs Vital signs: Vital Signs - 8 hr 06/14/21 11:16 Pulse Rate 48 L Blood Pressure 115/75 Pulse Oximetry 95 MDM - Chest Pain Lab Data Result diagrams: 06/14/21 09:48 06/14/21 09:48 Labs: Lab Results 06/14/21 06/14/21 06/14/21 Range/Units 09:48 09:48 09:48 WBC 4.9 (4.5-11.0) X10^3/uL RBC 4.76 (4.5-5.9) X10^6/uL Hgb 13.9 (13.5-17.5) g/dL Hct 41.7 (41-53) % MCV 87.4 (80-100) fL MCH 29.1 (26-34) PG MCHC 33.3 (30-36) % RDW 14.2 (11.6-14.8) % Plt Count 218 (150-400) X10^3/uL Neut % (Auto) 46.7 L (50-75) % Lymph % (Auto) 41.0 H (25-40) % [place] % (Auto) 9.6 (3-14) % Eos % (Auto) 1.8 L (2-4) % Baso % (Auto) 0.9 (0-2) % Neut # (Auto) 2300 (3657-5025) /uL Lymph # (Auto) 2000 (2124-1104) /uL [place] # (Auto) 500 (0-900) /uL Eos # (Auto) 100 (0-450) /uL Baso # (Auto) 0 (0-100) /uL PT 11.7 (10.1-12.7) SECONDS INR 1.1 (0.9-1.3) APTT 33 (26.4-36.2) SECONDS Sodium 140 (137-145) mmol/L Potassium 4.1 (3.4-5.1) mmol/L Chloride 105 (98-107) mmol/L Carbon Dioxide 27 (22-32) mmol/L BUN 13 (9-20) mg/dL Creatinine 0.79 (0.66-1.25) mg/dL Estimated GFR > 60.0 (>60) mL/min BUN/Creatinine Ratio 16.5 (6-22) Glucose 102 H (70-100) mg/dL Calcium 10.3 H (8.4-10.2) mg/dL Magnesium 2.0 (1.6-2.3) mg/dL Total Bilirubin 0.6 (0.2-1.3) mg/dL AST 23 (17-59) IU/L ALT 18 (<50) IU/L Alkaline Phosphatase 67 (38-126) U/L Total Creatine Kinase 84 (55-170) U/L CK-MB (CK-2) TNP CK-MB (CK-2) Rel Index TNP Troponin I < 0.012 (0.01-0.034) ng/mL Total Protein 8.3 H (6.3-8.2) g/dL Albumin 4.6 (3.5-5.0) g/dL Globulin 3.7 (1.7-4.1) g/dL Albumin/Globulin Ratio 1.2 (1.0-2.8) Lipase 109 (23-300) U/L Imaging Data Chest x-ray: Radiologist's Impression: PROCEDURE:? XR CHEST 1V ? INDICATIONS:? chest pain ? TECHNIQUE:? One view of the chest was acquired.? ? COMPARISON:? None. ? FINDINGS:? ? Surgical changes and devices:? None.? ? Lungs and pleura:? Lungs are clear.? No pleural effusions or pneumothorax.? ? Mediastinum:? Mediastinal contours appear normal.? Heart size is enlarged.? No vascular congestion present..? ? Bones and chest wall:? No suspicious bony lesions.? Overlying soft tissues appear unremarkable.? ? IMPRESSION:? Cardiomegaly without vascular congestion ? ? ? Approved by: Prince Arenas M.D. on 06/14/2021 at 10:00? ECG Data Interpretation: Rhythm rate 52 CT interval 168 QRS [address] changes no T-wave inversions normal CT interval, no priors MDM Narrative Medical decision making narrative: Patient is having intermittent palpitations. He drinks 1 cup of green tea daily he quit coffee. He does not drink any alcohol. No PVCs noted on the monitor in the ED. Been ongoing for the last 5 days troponin is negative. He has no shortness of breath. Recommend outpatient Holter monitor and to get established with a primary care provider. Discharge Plan Departure Patient Disposition: Home Clinical Impression: Heart palpitations Instructions: Arrhythmias Activity Restrictions/Additional Instructions: *You have been diagnosed with palpitations *What to do: At this time I recommend a Holter monitor that you wear to monitor your heart rate. This can be set up with a primary care provider not in the emergency department. Increase water intake be sure to eat healthy. Limit caffeine and alcohol. *Continue to take medications as directed May take aspirin 81 mg daily, do not take with ibuprofen *Follow up with your primary care provider in 2-3 days or call [phone] *Return to ER if you should have increasing chest pain palpitations dizziness lightheadedness shortness of breath or any new, worsening or concerning symptoms Prescriptions: No Action permethrin 5 % cream 1 applic topical Q14D Qty: 60 4RF Rx Instructions: apply second treatment 14 days after first treatment if live scabies remain Referrals: Miscellaneous,Doctor, [Primary Care Provider] -
== END 2021-06-14 11:16 | disposition home or self-care (01) ==
PROVIDERS: Emergency Provider Emergency Medicine
DX: R00.2 Palpitations (principal)
CPT/HCPCS: 36415; 71045; 80053; 82550; 83690; 83735; 84484; 85025; 85610; 85730; 93005; 93010; 99284

== ENCOUNTER 2023-06-15 15:15 | Emergency (ER) | payer OTHER, MEDICAID, SELFPAY ==
[2023-06-15 15:17] VITALS: BP 147/97; PULSE 73; RESP 18; TEMP 36.1; O2SAT 99; BMI 28.5
[2023-06-15 15:50] LABS: Add Manual Diff / Slide Review NO; Basophils Absolute Auto 100 /uL (0-100); Basophils Percent Auto 0.9 % (0-2); Eosinophils Absolute Auto 100 /uL (0-450); Eosinophils Percent Auto 1.6 % (2-4); Hematocrit 39.1 % (41-53); Hemoglobin 13.3 g/dL (13.5-17.5); Lymphocytes Absolute Auto 2300 /uL (1100-4500); Lymphocytes Percent Auto 26.8 % (25-40); Mean Corpuscular HGB Conc 34.1 % (30-36); Mean Corpuscular Hemoglobin 29.6 PG (26-34); Monocytes Absolute Auto 800 /uL (0-900); Monocytes Percent Auto 9.6 % (3-14); Neutrophils Absolute Auto 5200 /uL (1500-7000); Neutrophils Percent Auto 61.1 % (50-75); Platelet Count 209 X10^3/uL (150-400); Red Cell Distribution Width 13.4 % (11.6-14.8); White Blood Cell Count 8.6 X10^3/uL (4.5-11.0)
[2023-06-15 16:00] LABS: Appearance Urine UA CLEAR; Bilirubin Urine UA NEGATIVE (NEGATIVE); Color Urine UA YELLOW; Glucose Urine UA NEGATIVE (Negative); Ketones Urine UA 1+ (NEGATIVE); Leukocyte Esterase Urine UA NEGATIVE (NEGATIVE); Nitrite Urine UA NEGATIVE (Negative); Occult Blood Urine UA TRACE-INTACT (Negative); Protein Urine UA TRACE (Negative); Specific Gravity Urine UA 1.015 (1.000-1.035)
[2023-06-15 16:06] LABS: Alanine Aminotransferase 18 IU/L (<50); Albumin 4.2 g/dL (3.5-5.0); Albumin Globulin Ratio 1.1 (1.0-2.8); Alkaline Phosphatase 74 U/L (38-126); Aspartate Aminotransferase 20 IU/L (17-59); BUN Creatinine Ratio 27.1 (6-22); Bilirubin Total 0.8 mg/dL (0.2-1.3); Blood Urea Nitrogen 19 mg/dL (9-20); Carbon Dioxide 24 mmol/L (22-32); Chloride 107 mmol/L (98-107); Estimated Glomerular Filt Rate > 60 mL/min (>60); Globulin 3.8 g/dL (1.7-4.1); Glucose 102 mg/dL (70-100); HEMOLYSIS < 15 (0-50); Lipase 96 U/L (23-300); Potassium 3.8 mmol/L (3.4-5.1); Sodium 140 mmol/L (137-145)
[2023-06-15 16:15] LABS: Bacteria Urine Occasional (0-1); Mucus Urine 2+ (Negative); RBC Urine 0-1/HPF (0-5/HPF); Squamous Epithelial Cell Urine 0-1 /HPF (0-5/HPF); Urine Volume 10mL (spun); WBC Urine 0-1/HPF (0-5/HPF)
[2023-06-15 16:16] LABS: Culture Indicated Urine Cult Not Indicated
[2023-06-15 16:17] LABS: Troponin I < 0.012 ng/mL (0.01-0.034)
[2023-06-15] MEDS: ONDANSETRON 4 MG/2 ML INJ IV (16:32)
--- NOTE | 2023-06-15 17:40 | ED_ITS ---
HPI - Abdominal Pain <Benson Torres MD - Last Filed: 07/07/23 14:49> General Chief Complaint: Abdominal Pain Stated Complaint: abd pain Time Seen by Provider: 06/15/23 15:51 Source: patient Mode of arrival: Ambulatory History of Present Illness HPI narrative: patient is reporting abdominal pain for week and bipolar disorder history. He became agitated and I was asked by nursing staff to see him immediately. He is indeed agitated although seems to be redirectable. I reviewed his vital signs which are normal. Labs have been ordered, he has an IV in place I have ordered droperidol, hydromorphone and diphenhydramine. He will be seen by the oncoming physician Related Data Allergies Allergy/AdvReac Type Severity Reaction Status Date / Time No Known Drug Allergies Allergy Verified 03/15/23 08:12 Patient History <Benson Torres MD - Last Filed: 07/07/23 14:49> Medical History Bipolar 1 disorder Scabies Schizophrenia Skin rash Social History Smoking Status: Never smoker Smoking Status: Never smoker alcohol intake frequency: holidays/special occasions only Substance Use Type: marijuana Exam <Benson Torres MD - Last Filed: 07/07/23 14:49> Initial Vital Signs Initial Vital Signs: Vital Signs Temperature 96.9 F L 06/15/23 15:17 Pulse Rate 73 06/15/23 15:17 Respiratory Rate 18 06/15/23 15:17 Blood Pressure 147/97 H 06/15/23 15:17 Pulse Oximetry 99 06/15/23 15:17 Oxygen Delivery Method Room Air 06/15/23 15:17 <Lubna Vences MD - Last Filed: 06/15/23 18:37> Initial Vital Signs Initial Vital Signs: Vital Signs Temperature 96.9 F L 06/15/23 15:17 Pulse Rate 73 06/15/23 15:17 Respiratory Rate 18 06/15/23 15:17 Blood Pressure 147/97 H 06/15/23 15:17 Pulse Oximetry 99 06/15/23 15:17 Oxygen Delivery Method Room Air 06/15/23 15:17 Course <Benson Torres MD - Last Filed: 07/07/23 14:49> Orders Ordered: Discontinued Medications Diphenhydramine HCl (Diphenhydramine 50 Mg/Ml Vial) 25 mg IV NOW ONE Stop: 06/15/23 17:40 Last Admin: 06/15/23 17:47 Dose: 25 mg Documented By: MPO Droperidol (Droperidol 5 Mg/2 Ml Vial) 1.25 mg IV NOW ONE Stop: 06/15/23 17:40 Last Admin: 06/15/23 17:46 Dose: 1.25 mg Documented By: MPO Hydromorphone HCl (Hydromorphone 0.5 Mg Inj) 0.5 mg IV NOW ONE Stop: 06/15/23 17:41 Last Admin: 06/15/23 17:46 Dose: 0.5 mg Documented By: MPO Ondansetron HCl (Ondansetron 4 Mg/2 Ml Inj) 4 mg IV NOW PRN PRN Reason: Nausea And Vomiting Last Admin: 06/15/23 16:32 Dose: 4 mg Documented By: HALLE Ondansetron HCl (Ondansetron 4 Mg Odt) 4 mg PO NOW PRN PRN Reason: Nausea And Vomiting Vital Signs Vital signs: Vital Signs - 8 hr 06/15/23 15:17 Temperature 96.9 F L Pulse Rate 73 Respiratory Rate 18 Blood Pressure 147/97 H Pulse Oximetry 99 Oxygen Delivery Method Room Air <Lubna Vences MD - Last Filed: 06/15/23 18:37> Orders Ordered: Discontinued Medications Diphenhydramine HCl (Diphenhydramine 50 Mg/Ml Vial) 25 mg IV NOW ONE Stop: 06/15/23 17:40 Last Admin: 06/15/23 17:47 Dose: 25 mg Documented By: MPO Droperidol (Droperidol 5 Mg/2 Ml Vial) 1.25 mg IV NOW ONE Stop: 06/15/23 17:40 Last Admin: 06/15/23 17:46 Dose: 1.25 mg Documented By: HALLE Hydromorphone HCl (Hydromorphone 0.5 Mg Inj) 0.5 mg IV NOW ONE Stop: 06/15/23 17:41 Last Admin: 06/15/23 17:46 Dose: 0.5 mg Documented By: HALLE Ondansetron HCl (Ondansetron 4 Mg/2 Ml Inj) 4 mg IV NOW PRN PRN Reason: Nausea And Vomiting Last Admin: 06/15/23 16:32 Dose: 4 mg Documented By: HALLE Ondansetron HCl (Ondansetron 4 Mg Odt) 4 mg PO NOW PRN PRN Reason: Nausea And Vomiting Vital Signs Vital signs: Vital Signs - 8 hr 06/15/23 15:17 Temperature 96.9 F L Pulse Rate 73 Respiratory Rate 18 Blood Pressure 147/97 H Pulse Oximetry 99 Oxygen Delivery Method Room Air MDM - Abdominal Pain <Benson Torres MD - Last Filed: 07/07/23 14:49> Lab Data 06/15/23 15:32 06/15/23 15:32 Labs: Lab Results 06/15/23 06/15/23 Range/Units 15:32 15:50 WBC 8.6 (4.5-11.0) X10^3/uL RBC 4.50 (4.5-5.9) X10^6/uL Hgb 13.3 L (13.5-17.5) g/dL Hct 39.1 L (41-53) % MCV 87.0 (80-100) fL MCH 29.6 (26-34) PG MCHC 34.1 (30-36) % RDW 13.4 (11.6-14.8) % Plt Count 209 (150-400) X10^3/uL Neut % (Auto) 61.1 (50-75) % Lymph % (Auto) 26.8 (25-40) % [place] % (Auto) 9.6 (3-14) % Eos % (Auto) 1.6 L (2-4) % Baso % (Auto) 0.9 (0-2) % Neut # (Auto) 5200 (4440-9496) /uL Lymph # (Auto) 2300 (3392-4749) /uL [place] # (Auto) 800 (0-900) /uL Eos # (Auto) 100 (0-450) /uL Baso # (Auto) 100 (0-100) /uL Sodium 140 (137-145) mmol/L Potassium 3.8 (3.4-5.1) mmol/L Chloride 107 (98-107) mmol/L Carbon Dioxide 24 (22-32) mmol/L BUN 19 (9-20) mg/dL Creatinine 0.70 (0.66-1.25) mg/dL Estimated GFR > 60 (>60) mL/min BUN/Creatinine Ratio 27.1 H (6-22) Glucose 102 H (70-100) mg/dL Calcium 10.0 (8.4-10.2) mg/dL Total Bilirubin 0.8 (0.2-1.3) mg/dL AST 20 (17-59) IU/L ALT 18 (<50) IU/L Alkaline Phosphatase 74 (38-126) U/L Troponin I < 0.012 (0.01-0.034) ng/mL Total Protein 8.0 (6.3-8.2) g/dL Albumin 4.2 (3.5-5.0) g/dL Globulin 3.8 (1.7-4.1) g/dL Albumin/Globulin Ratio 1.1 (1.0-2.8) Lipase 96 (23-300) U/L Urine Color Yellow Urine Appearance Clear Urine pH 7.0 (4.5-8.0) Ur Specific [place] 1.015 (1.000-1.035) Urine Protein Trace H (Negative) Urine Glucose (UA) Negative (Negative) g/dL Urine Ketones 1+ H (NEGATIVE) Urine Occult Blood Trace-intact (Negative) Urine Nitrate Negative (Negative) Urine Bilirubin Negative (NEGATIVE) Urine Urobilinogen 1.0 (0.2) E.U./dL Ur Leukocyte Esterase Negative (NEGATIVE) Urine RBC 0-1/hpf (0-5/HPF) Urine WBC 0-1/hpf (0-5/HPF) Ur Squamous Epith Cells 0-1 /hpf (0-5/HPF) Urine Bacteria Occasional (0-1) (None) Urine Mucus 2+ H (Negative) Ur Culture Indicated? Cult not indicated Vol Urine Centrifuged 10ml (spun) <Lubna Vences MD - Last Filed: 06/15/23 18:37> Lab Data Labs: Lab Results 06/15/23 06/15/23 Range/Units 15:32 15:50 WBC 8.6 (4.5-11.0) X10^3/uL RBC 4.50 (4.5-5.9) X10^6/uL Hgb 13.3 L (13.5-17.5) g/dL Hct 39.1 L (41-53) % MCV 87.0 (80-100) fL MCH 29.6 (26-34) PG MCHC 34.1 (30-36) % RDW 13.4 (11.6-14.8) % Plt Count 209 (150-400) X10^3/uL Neut % (Auto) 61.1 (50-75) % Lymph % (Auto) 26.8 (25-40) % [place] % (Auto) 9.6 (3-14) % Eos % (Auto) 1.6 L (2-4) % Baso % (Auto) 0.9 (0-2) % Neut # (Auto) 5200 (8002-2330) /uL Lymph # (Auto) 2300 (5438-3807) /uL [place] # (Auto) 800 (0-900) /uL Eos # (Auto) 100 (0-450) /uL Baso # (Auto) 100 (0-100) /uL Sodium 140 (137-145) mmol/L Potassium 3.8 (3.4-5.1) mmol/L Chloride 107 (98-107) mmol/L Carbon Dioxide 24 (22-32) mmol/L BUN 19 (9-20) mg/dL Creatinine 0.70 (0.66-1.25) mg/dL Estimated GFR > 60 (>60) mL/min BUN/Creatinine Ratio 27.1 H (6-22) Glucose 102 H (70-100) mg/dL Calcium 10.0 (8.4-10.2) mg/dL Total Bilirubin 0.8 (0.2-1.3) mg/dL AST 20 (17-59) IU/L ALT 18 (<50) IU/L Alkaline Phosphatase 74 (38-126) U/L Troponin I < 0.012 (0.01-0.034) ng/mL Total Protein 8.0 (6.3-8.2) g/dL Albumin 4.2 (3.5-5.0) g/dL Globulin 3.8 (1.7-4.1) g/dL Albumin/Globulin Ratio 1.1 (1.0-2.8) Lipase 96 (23-300) U/L Urine Color Yellow Urine Appearance Clear Urine pH 7.0 (4.5-8.0) Ur Specific [place] 1.015 (1.000-1.035) Urine Protein Trace H (Negative) Urine Glucose (UA) Negative (Negative) g/dL Urine Ketones 1+ H (NEGATIVE) Urine Occult Blood Trace-intact (Negative) Urine Nitrate Negative (Negative) Urine Bilirubin Negative (NEGATIVE) Urine Urobilinogen 1.0 (0.2) E.U./dL Ur Leukocyte Esterase Negative (NEGATIVE) Urine RBC 0-1/hpf (0-5/HPF) Urine WBC 0-1/hpf (0-5/HPF) Ur Squamous Epith Cells 0-1 /hpf (0-5/HPF) Urine Bacteria Occasional (0-1) (None) Urine Mucus 2+ H (Negative) Ur Culture Indicated? Cult not indicated Vol Urine Centrifuged 10ml (spun) MDM Narrative Medical decision making narrative: I received sign-out on this patient from the daytime doctor. Unfortunately the patient left prior to me seeing him against medical advice. I was not able to discuss results with the patient or discuss the risks of leaving prior to completing treatment. I did not evaluate this patient prior to him leaving the department. Discharge Plan Departure Patient Disposition: Left Against Medical Advice Clinical Impression: Abdominal pain, Left against medical advice Referrals: Miscellaneous,Doctor, [Primary Care Provider] - Stand Alone Forms: Patient Portal/API, Against Medical Advice
[2023-06-15] MEDS: DROPERIDOL 5 MG/2 ML VIAL 1.25 MG IV (17:46)
[2023-06-15] MEDS: HYDROMORPHONE 0.5 MG INJ IV (17:46)
[2023-06-15] MEDS: diphenhydrAMINE 50 MG/ML VIAL 25 MG IV (17:47)
--- NOTE | 2023-06-15 18:01 | PC.NURSE ---
Pt c/o burning and cramping lower abd pain. Pt unable to find position of comfort. Skin clammy and warm.
--- NOTE | 2023-06-15 18:04 | PC.NURSE ---
Pt c/o intese burning and cramping in lower abd. Pt unable to find position of comfort. 300cc out of clear, yellow urine. Dr Torres notified of pt status. No new orders at this time.
--- NOTE | 2023-06-15 18:07 | PC.NURSE ---
Pt c/o lower abd pain that he states is 10/10. Pt skin remains warm and clammy. Pt becoming more agitated and cannot find position of comfort. Dr Torres notified. No new orders at this time.
--- NOTE | 2023-06-15 18:13 | PC.NURSE ---
Patient exiting ER at this time having pulled out his own IV, I offered to wrap the IW and asked the patient to stay and be seen and evaluated by provider. He refuses to stay at this time and placed a kleenex on bleeding IV site on his way out.
--- NOTE | 2023-06-15 18:13 | PC.NURSE ---
Pt very agitated and aggressive at this time. C/O 10/10 abd pain and can not find position of comfort. Pt pacing, sweaty and shouting at nursing staff. Dr Torres notified and came to bedside. Received orders for dilaudid, benadryl and droperidol. No orders for imaging at this time. Pt overall demeanor anxious, upset and agitated.
--- NOTE | 2023-06-15 18:19 | PC.NURSE ---
1808 Pt remains agitated and tearful after receiving ordered medications. Pt pulled out IV and stated, I don't want to leave, I just want someone to do something. I am in pain and scared. Pt exited dept AMA with steady gait and independently. Pt refused dressing or assistance with iv site.
== END 2023-06-15 18:08 | disposition left against medical advice (07) ==
PROVIDERS: Emergency Medicine; Emergency Provider Emergency Medicine
DX: R10.9 Unspecified abdominal pain (principal); Z53.29 Procedure and treatment not carried out because of patient's decision for other reasons
CPT/HCPCS: 36415; 80053; 81001; 83690; 84484; 85025; 93005; 93010; 96374; 96375; 99284; J1170; J1200; J1790; J2405